=== PATIENT | male | born 1965 | race African-American/Black ===

== ENCOUNTER 2017-02-01 12:04 | Emergency (ER) | payer OTHER ==
[~2017-02-01] VITALS: Ht 172.7 cm; Wt 74.8 kg
[2017-02-01 13:09] VITALS: BP 166/96
== END 2017-02-01 13:09 | disposition home or self-care (01) ==
LOC: ED 12:04
DX: L03.115 Cellulitis of right lower limb (principal); R03.0 Elevated blood-pressure reading, without diagnosis of hypertension; I25.10 Atherosclerotic heart disease of native coronary artery without angina pectoris; M21.961 Unspecified acquired deformity of right lower leg

== ENCOUNTER 2017-02-02 09:56 | Emergency (ER) | payer OTHER ==
[~2017-02-02] VITALS: Ht 172.7 cm; Wt 74.8 kg
[2017-02-02 11:14] VITALS: BP 157/110
== END 2017-02-02 11:14 | disposition home or self-care (01) ==
LOC: ED 09:56
DX: L03.115 Cellulitis of right lower limb (principal); R03.0 Elevated blood-pressure reading, without diagnosis of hypertension; I25.10 Atherosclerotic heart disease of native coronary artery without angina pectoris; I25.2 Old myocardial infarction
CPT/HCPCS: Q0092

== ENCOUNTER 2018-03-23 12:54 | Emergency (ER) | payer OTHER ==
[~2018-03-23] VITALS: Ht 172.7 cm; Wt 66.8 kg
[2018-03-23 12:58] VITALS: Ht 172.7 cm; Wt 66.8 kg
[2018-03-23 14:59] LABS: CALCIUM 8.4 mg/dL (8.5-10.1); CARBON DIOXIDE 25.8 mmol/L (21-32); CHLORIDE SERUM 105 mmol/L (98-107); GFR1 > 60 mL/min; GLUCOSE SERUM 122 mg/dL (74-106); POTASSIUM SERUM 4.2 mmol/L (3.5-5.1); SODIUM SERUM 140 mmol/L (136-145)
[2018-03-23 15:01] LABS: BASOPHIL % 0.5 % (0-2); PLATELET COUNT 226 x10^3mcL (130-400)
[2018-03-23 15:02] LABS: RED CELL DISTRIBUTION WIDTH 14.8 % (11.5-14.5)
[2018-03-23 16:12] VITALS: BP 138/96
== END 2018-03-23 16:12 | disposition home or self-care (01) ==
LOC: ED 12:54
PROVIDERS: Emergency Medicine
DX: R42 Dizziness and giddiness (principal); I10 Essential (primary) hypertension
CPT/HCPCS: 36415; J8597; Q0092; Q0162

== ENCOUNTER 2018-07-08 09:46 | Emergency (ER) | payer MEDICARE, MEDICAID ==
[~2018-07-08] VITALS: Ht 172.7 cm; Wt 64.4 kg
[2018-07-08 10:06] VITALS: BP 139/89; Ht 172.7 cm; Wt 64.4 kg
== END 2018-07-08 12:05 | disposition home or self-care (01) ==
LOC: ED 09:46
DX: M10.9 Gout, unspecified (principal); F17.210 Nicotine dependence, cigarettes, uncomplicated; Z71.6 Tobacco abuse counseling
CPT/HCPCS: 99406

== ENCOUNTER 2018-11-10 12:48 | Emergency (ER) | payer MEDICARE, MEDICAID ==
[~2018-11-10] VITALS: Ht 172.7 cm; Wt 67.6 kg
[2018-11-10 14:03] VITALS: Ht 172.7 cm; Wt 67.6 kg
[2018-11-10 17:04] LABS: BASOPHIL % 0.8 % (0-2); PLATELET COUNT 203 x10^3mcL (130-400); RED CELL DISTRIBUTION WIDTH 13.6 % (11.5-14.5)
[2018-11-10 17:19] LABS: CALCIUM 8.2 mg/dL (8.5-10.1); CARBON DIOXIDE 26.2 mmol/L (21-32); CHLORIDE SERUM 106 mmol/L (98-107); GFR1 > 60 mL/min; GLUCOSE SERUM 120 mg/dL (74-106); POTASSIUM SERUM 3.7 mmol/L (3.5-5.1); SODIUM SERUM 140 mmol/L (136-145)
[2018-11-10 17:23] LABS: ALBUMIN 3.4 g/dL (3.4-5.0); ALKALINE PHOSPHATASE 78 U/L (46-116); ALT/SGPT 29 U/L (16-63); AST/SGOT 29 U/L (15-37); BILIRUBIN TOTAL 0.2 mg/dL (0.20-1.00); CHOLESTEROL 183 mg/dL (<200); HDL CHOLESTEROL 42 mg/dL (40-60); TOTAL PROTEIN, SERUM 6.9 g/dL (6.4-8.2)
[2018-11-10 17:25] LABS: AMPHETAMINE QUAL UR NONE DETECTED (See below)
[2018-11-10 19:52] VITALS: BP 146/90
== END 2018-11-10 19:52 | disposition short-term general hospital (02) ==
LOC: ED 12:48
PROVIDERS: Emergency Medicine
DX: I21.4 Non-ST elevation (NSTEMI) myocardial infarction (principal); I10 Essential (primary) hypertension; F17.200 Nicotine dependence, unspecified, uncomplicated; F14.10 Cocaine abuse, uncomplicated; F15.10 Other stimulant abuse, uncomplicated; M10.9 Gout, unspecified
CPT/HCPCS: 83880; 94150; 99406; J2930; J7613; J7644

== ENCOUNTER 2019-05-19 21:04 | Emergency (ER) | payer MEDICARE, MEDICAID ==
[~2019-05-19] VITALS: Ht 172.7 cm; Wt 72.6 kg
[2019-05-19 21:09] VITALS: Ht 172.7 cm; Wt 72.6 kg
[2019-05-19 22:00] LABS: CARBON DIOXIDE 25.5 mmol/L (21-32); CHLORIDE SERUM 104 mmol/L (98-107); CREATININE SERUM 1.2 mg/dL (0.7-1.3); GFR1 > 60 mL/min; GLUCOSE SERUM 154 mg/dL (74-106); SODIUM SERUM 142 mmol/L (136-145)
[2019-05-19 22:05] LABS: ALBUMIN 4.1 g/dL (3.4-5.0); ALKALINE PHOSPHATASE 101 U/L (46-116); ALT/SGPT 22 U/L (16-63); AST/SGOT 17 U/L (15-37); BILIRUBIN TOTAL 0.56 mg/dL (0.20-1.00); TOTAL PROTEIN, SERUM 7.7 g/dL (6.4-8.2)
[2019-05-19 22:06] LABS: POTASSIUM SERUM 4.6 mmol/L (3.5-5.1)
[2019-05-19 22:14] LABS: BASOPHIL % 0.2 % (0-2); PLATELET COUNT 229 x10^3mcL (130-400)
[2019-05-20 08:05] VITALS: BP 135/78
== END 2019-05-20 08:05 | disposition left against medical advice (07) ==
LOC: ED 21:04
PROVIDERS: Emergency Medicine
DX: J44.1 Chronic obstructive pulmonary disease with (acute) exacerbation (principal); J18.9 Pneumonia, unspecified organism; I10 Essential (primary) hypertension; I25.2 Old myocardial infarction; F17.210 Nicotine dependence, cigarettes, uncomplicated
CPT/HCPCS: 83880; 99406; J0696; J2930; J3475; J3490; J7050; J7060; J7613; J7644; Q0092